=== PATIENT | female | born 1995 | race African-American/Black ===

== ENCOUNTER 2016-09-10 10:10 | Emergency (ER) | payer OTHER ==
[~2016-09-10] VITALS: Ht 162.6 cm; Wt 69.4 kg
[~2016-09-10 10:10] MED LIST: ADVAIR 100-501 EACH; ADVAIR 250-501 EACH INH; AMOXICILLIN 50500 M1 PO; BACTRIM DS TAB1 EACH PO; BENADRYL25 MG PO; DAYTIME COLD-F1 EAC1 PO; DEPO-PROVER150 MG/M1; EPIPEN 2-P0.3 MG/0.3 IM; KEFLEX500 MG PO; NOHOMEMEDICATIONS; NORCO 5-325 TA1 EACH PO; PEPCID20 MG PO; PREDNISONE 10 M10 MG PO; PREDNISONE 20 M20 MG PO; ROBITUSSIN15 MG/5 M1 PO; TRINATE TABLET1 TAB PO; ULTRAM 50MG TAB50 MG PO; VENTOLIN HFA 1818 GM INH
[2016-09-10 10:11] VITALS: BP 101/48
[2016-09-11] MEDS ORDERED: BENADRYL25 MG PO (10:23)
[2016-09-11 14:10] LABS: CHLAMYDIA TRACHOMATIS-PCR Negative (Negative); NEISSERIA GONORRHEA-PCR Negative (Negative)
== END 2016-09-10 12:42 | disposition home or self-care (01) ==
LOC: ER 10:10
PROVIDERS: Physician Assistant
DX: N89.8 Other specified noninflammatory disorders of vagina (principal); L29.8 Other pruritus; J45.909 Unspecified asthma, uncomplicated; Z88.8 Allergy status to other drugs, medicaments and biological substances; Z91.010 Allergy to peanuts

== ENCOUNTER 2016-09-11 10:08 | Emergency (ER) | payer OTHER ==
[~2016-09-11] VITALS: Ht 162.6 cm; Wt 69.4 kg
[2016-09-11 10:11] VITALS: BP 98/55
[2016-09-11] MEDS ORDERED: BENADRYL25 MG PO (10:23)
== END 2016-09-11 10:39 | disposition home or self-care (01) ==
LOC: ER 10:08
DX: O26.893 Other specified pregnancy related conditions, third trimester (principal); O99.513 Diseases of the respiratory system complicating pregnancy, third trimester; J45.909 Unspecified asthma, uncomplicated; Z3A.28 28 weeks gestation of pregnancy; Z88.8 Allergy status to other drugs, medicaments and biological substances; Z91.010 Allergy to peanuts

== ENCOUNTER 2017-05-28 09:11 | Emergency (ER) | payer BC, OTHER ==
[~2017-05-28] VITALS: Ht 162.6 cm; Wt 61.7 kg
[2017-05-28 09:12] VITALS: BP 101/60
[2017-05-28] MEDS ORDERED: AMOXICILLIN500 M1 PO (09:20)
[2017-05-28] MEDS ORDERED: PREDNISONE 20 M20 MG PO (09:22)
== END 2017-05-28 09:37 | disposition home or self-care (01) ==
LOC: ER 09:11
DX: J02.9 Acute pharyngitis, unspecified (principal); J45.909 Unspecified asthma, uncomplicated; Z88.8 Allergy status to other drugs, medicaments and biological substances; Z91.010 Allergy to peanuts

== ENCOUNTER 2017-05-31 11:49 | Emergency (ER) | payer BC, OTHER ==
[~2017-05-31] VITALS: Ht 162.6 cm; Wt 61.7 kg
[~2017-05-31 11:49] MED LIST changes: +AMOXICILLIN500 M1 PO
[2017-05-31 13:04] VITALS: BP 102/59
== END 2017-05-31 13:04 | disposition home or self-care (01) ==
LOC: ER 11:49
DX: J00 Acute nasopharyngitis [common cold] (principal); J45.909 Unspecified asthma, uncomplicated; Z91.010 Allergy to peanuts; Z88.6 Allergy status to analgesic agent

== ENCOUNTER 2017-07-17 23:16 | Emergency (ER) | payer BC, OTHER ==
[~2017-07-17] VITALS: Ht 162.6 cm; Wt 61.7 kg
[2017-07-18] MEDS ORDERED: BENADRYL25 MG PO (00:49)
[2017-07-18] MEDS ORDERED: PREDNISONE 20 M20 MG PO (00:49)
[2017-07-18 01:34] VITALS: BP 87/42
== END 2017-07-18 01:35 | disposition home or self-care (01) ==
LOC: ER 23:16
DX: T78.40XA Allergy, unspecified, initial encounter (principal); J45.909 Unspecified asthma, uncomplicated; Z98.890 Other specified postprocedural states; X58.XXXA Exposure to other specified factors, initial encounter; Z91.010 Allergy to peanuts; Z88.6 Allergy status to analgesic agent

== ENCOUNTER 2017-09-21 15:34 | Emergency (ER) | payer OTHER ==
[~2017-09-21] VITALS: Ht 162.6 cm; Wt 64.4 kg
[2017-09-21] MEDS ORDERED: AMOXICILLIN500 M1 PO (15:40)
[2017-09-21] MEDS ORDERED: TESSALON PERLE100 MG PO (15:41)
== END 2017-09-21 16:08 | disposition home or self-care (01) ==
LOC: ER 15:34
DX: J02.0 Streptococcal pharyngitis (principal); H66.92 Otitis media, unspecified, left ear; J45.909 Unspecified asthma, uncomplicated; Z88.6 Allergy status to analgesic agent; Z91.010 Allergy to peanuts

== ENCOUNTER 2018-08-12 08:54 | Emergency (ER) | payer OTHER ==
[~2018-08-12] VITALS: Ht 162.6 cm; Wt 64.4 kg
[~2018-08-12 08:54] MED LIST changes: +TESSALON PERLE100 MG PO
[2018-08-12] MEDS ORDERED: TESSALON PERLE100 MG PO (09:37)
[2018-08-12] MEDS ORDERED: FLONASE 0.05%50 MCG NASAL (09:37)
[2018-08-12 09:46] VITALS: BP 98/67
== END 2018-08-12 09:47 | disposition home or self-care (01) ==
LOC: ER 08:54
DX: J06.9 Acute upper respiratory infection, unspecified (principal); J45.909 Unspecified asthma, uncomplicated; Z91.010 Allergy to peanuts; Z88.8 Allergy status to other drugs, medicaments and biological substances; Z98.890 Other specified postprocedural states